=== PATIENT | female | born 1955 | race Caucasian/White ===

== ENCOUNTER 2023-07-11 11:22 | Outpatient (OUT) | payer MEDICARE, OTHER, BC, SELFPAY ==
[2023-07-12 13:14] LABS: C. Difficile PCR POSITIVE (NEGATIVE)
== END 2023-07-11 11:23 | disposition home or self-care (01) ==
LOC: LAB 11:22
PROVIDERS: PCP Family Medicine; Visit Provider Family Medicine
DX: R19.7 Diarrhea, unspecified (principal); R10.9 Unspecified abdominal pain
CPT/HCPCS: 87493

== ENCOUNTER 2024-11-22 09:58 | Outpatient (OUT) | payer MEDICARE, OTHER, BC, SELFPAY ==
[2024-11-22 11:38] LABS: Alanine Aminotransferase 27 U/L (14-59); Albumin Globulin Ratio 0.9; Albumin Level 3.2 g/dL (3.4-5.0); Alkaline Phosphatase 99 U/L (46-116); Aspartate Amino Transferase 22 U/L (15-37); Bilirubin Direct 0.1 mg/dL (0.0-0.2); Bilirubin Total 0.5 mg/dL (0.2-1.0); Chol HDL Ratio 2.8; Globulin 3.4 g/dL; HDL Cholesterol 57 mg/dL (40-60); Total Protein 6.6 g/dL (6.4-8.2); Triglycerides 94 mg/dL (<=150); VLDL CHOLESTEROL 18.8 mg/dL
[2024-11-22 13:42] LABS: Cholesterol 164 mg/dL (<=200)
[2024-11-26 12:36] LABS: TSH W/ REFLEX FT4 1.174 uIU/mL (0.358-3.740)
== END 2024-11-22 09:59 | disposition home or self-care (01) ==
PROVIDERS: PCP Family Medicine; Visit Provider Internal Medicine Cardiovascular Disease
DX: E78.5 Hyperlipidemia, unspecified (principal); I48.91 Unspecified atrial fibrillation
CPT/HCPCS: 36415; 80061; 80076; 84443